=== PATIENT | male | born 1965 | race Asian ===

== ENCOUNTER 2018-09-15 11:53 | Emergency (ER) | payer BC ==
[~2018-09-15] VITALS: Ht 170.2 cm; Wt 68.0 kg
[2018-09-15] MEDS ORDERED: SILVER SULFADIAZINE 1% 50 GM JAR TP ONE ×2 (12:00→12:08)
[2018-09-15] MEDS ORDERED: diphenhydrAMINE 50 MG/ML VIAL IM ONE (12:00)
[2018-09-15] MEDS ORDERED: HYDROmorphone 1 MG/ML AMP IM ONE (12:00)
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
--- NOTE | 2018-09-15 13:59 | NUR ---
PT VERBALIZES DECREASE OF PAIN FROM 10/10 TO 6/10;NO FACIAL GRIMMACING OR MOANING NOTED.
[2018-09-15] MEDS ORDERED: MORPHINE SULFATE 2 MG/ML SYR IM ONE (14:30)
[2018-09-15] MEDS ORDERED: MORPHINE SULFATE 4 MG/ML SYR IM SCH (14:34)
--- NOTE | 2018-09-15 14:58 | NUR ---
ACCIDENTALLY DOCUMENT ON 4 MG / 2ML MORPHINE INSTEAD OF 4 MG/ML; MORPHINE 4 MG /ML WAS GIVEN; MORPHINE 4MG/ 2ML WAS NOT GRADE OUT AND WAS NOT ADMINISTERED; PHARMACYST LYN MADE AWARE.
[2018-09-15 15:15] VITALS: BP 128/75
--- NOTE | 2018-09-15 15:15 | NUR ---
Patient discharged with v/s stable. Written and verbal after care instructions given and explained. Patient alert, oriented and verbalized understanding of instructions. Ambulatory with steady gait. All questions addressed prior to discharge. ID band removed. Patient advised to follow up with PMD. Rx of SILVADENE 1%, VISTARIL 25MG AND TRAMADOL 50MG given. Patient educated on indication of medication including possible reaction and side effects. Opportunity to ask questions provided and answered.
== END 2018-09-15 15:15 | disposition home or self-care (01) ==
LOC: MED 11:53
DX: T21.22XA Burn of second degree of abdominal wall, initial encounter (principal); T31.0 Burns involving less than 10% of body surface; X10.1XXA Contact with hot food, initial encounter; Y93.89 Activity, other specified; Y92.89 Other specified places as the place of occurrence of the external cause; Y99.8 Other external cause status
CPT/HCPCS: 16025; 90471; 90715; 96372; 99284; J1170; J1200; J2270; 99283